=== PATIENT | male | born 2000 | race Caucasian/White ===

== ENCOUNTER 2019-03-28 08:25 | Emergency (ER) | payer MEDICAID ==
[~2019-03-28] VITALS: Ht 180.3 cm; Wt 50.2 kg
[2019-03-28 08:27] VITALS: BP 117/71
== END 2019-03-28 09:13 | disposition home or self-care (01) ==
LOC: ER 08:26
DX: J06.9 Acute upper respiratory infection, unspecified (principal); J02.9 Acute pharyngitis, unspecified; F12.90 Cannabis use, unspecified, uncomplicated
CPT/HCPCS: 99281

== ENCOUNTER 2019-06-13 21:13 | Emergency (ER) | payer MEDICAID ==
[~2019-06-13] VITALS: Ht 182.9 cm; Wt 52.3 kg
[2019-06-13] MEDS ORDERED: ketorolac tromethamine 15mg/ml inj. IM ONE (23:05)
[2019-06-13 23:40] VITALS: BP 111/65
== END 2019-06-13 23:45 | disposition home or self-care (01) ==
LOC: ER 21:13
DX: R09.1 Pleurisy (principal)
CPT/HCPCS: 71045; 96372; 99283; J1885